=== PATIENT | male | born 1960 ===

== ENCOUNTER 2018-01-04 11:06 | Emergency (ER) | payer MEDICAID, OTHER ==
[2018-01-04 11:23] VITALS: RESP 16; O2SAT 100
[2018-01-04 11:24] VITALS: BMI 27.1
--- NOTE | 2018-01-04 11:24 | ED PDOC ---
Arrival/HPI - General Chief Complaint: Chest Pain Time Seen by Provider: 01/04/18 11:21 Historian: Patient - History of Present Illness Narrative History of Present Illness (Text): 01/04/18 11:23 pt p/w few months onset of intermittent chest pain/substernal, at times radiating to left arm; pt states pain at most is 4-5/10; occurring nearly 2-3 times daily; pt states + dizziness/lightheadedness, + left arm numbness/tingling , + weakness at times, mild sob, ? nausea, no vomiting; no fever/chills/sweats, no palpitations, no abd pain, no urinary/bowel changes, no fall/trauma/sick contact, no travel; pt states chest pain occurs when he is at rest and as well as when he is exerting; pt denied LOC pt is here for further eval pt's without other complaints PCP: NONE pt without insurance Family hx: HTN, ACS Time/Duration: > month Symptom Onset: Gradual Symptom Course: Intermittent Quality: Throbbing Severity Level: 5, Moderate Activities at Onset: Rest, Other (also occurring when he is exerting) Context: Exertion, Home Past Medical History - Provider Review Nursing Documentation Reviewed: Yes - Travel History Have you recently traveled outside [place] w/in the past 3 mons?: No - Past History Past History: No Previous - Infectious Disease Hx of Infectious Diseases: None - Tetanus Immunization Tetanus Immunization: Unknown - Past Medical History Past Medical History: No Previous - Cardiac Hx Cardiac Disorders: No - Pulmonary Hx Respiratory Disorders: No - Neurological Hx Neurological Disorder: No - HEENT Hx HEENT Disorder: No - Renal Hx Renal Disorder: No - Endocrine/Metabolic Hx Diabetes Mellitus Type 2: Yes - Hematological/Oncological Hx Blood Disorders: No - Integumentary Hx Dermatological Disorder: Yes Other/Comment: boil to right lower abd - Musculoskeletal/Rheumatological Hx Musculoskeletal Disorders: No Hx Falls: No - Gastrointestinal Hx Gastrointestinal Disorders: No - Genitourinary/Gynecological Hx Genitourinary Disorders: No - Psychiatric Hx Psychophysiologic Disorder: No Hx Anxiety: No Hx Bipolar Disorder: No Hx Depression: No Hx Emotional Abuse: No Hx Hallucinations: No Hx Panic Disorder: No Hx Post Traumatic Stress Disorder: No Hx Psychosis: No Hx Physical Abuse: No Hx Schizophrenia: No Hx Sexual Abuse: No Hx Substance Use: Yes (CANNABIS) - Past Surgical History Past Surgical History: No Previous - Surgical History Other/Comment: I&D - Anesthesia Hx Anesthesia: Yes Hx Anesthesia Reactions: No Hx Malignant Hyperthermia: No - Suicidal Assessment Feels Threatened In Home Enviroment: No Family/Social History - Physician Review Nursing Documentation Reviewed: Yes Family/Social History: No Known Family HX Smoking Status: Heavy Smoker > 10 Cigarettes Daily Hx Alcohol Use: Yes Hx Substance Use: Yes (CANNABIS) Hx Substance Use Treatment: No Allergies/Home Meds Allergies/Adverse Reactions: Allergies No Known Allergies Allergy (Verified 01/04/18 11:18) Home Medications: Home Meds Medication Instructions Recorded Confirmed No Known Home Med 01/04/18 01/04/18 Review of Systems - Review of Systems Constitutional: Normal Eyes: Normal ENT: Normal Respiratory: SOB Cardiovascular: Chest Pain Gastrointestinal: Nausea Genitourinary Male: Normal Musculoskeletal: Normal Skin: Normal Neurological: Dizziness. absent: Headache Endocrine: Normal Hemo/Lymphatic: Normal Psychiatric: Normal Physical Exam Vital Signs Reviewed: Yes Vital Signs Temp Pulse Resp BP Pulse Ox 01/04/18 13:00 47 L 16 173/86 H 100 01/04/18 11:40 53 L 167/83 H 01/04/18 11:25 97.5 F L 01/04/18 11:23 52 L 16 167/83 H 100 Temperature: Afebrile Blood Pressure: Hypertensive Pulse: Regular Respiratory Rate: Normal Appearance: Positive for: Well-Appearing, Other (mildly uncomfortable, resting in bed, alert/awake, cooperative, follows command with ease, NAD) Pain Distress: None Mental Status: Positive for: Alert and Oriented X 3 - Systems Exam Head: Present: Atraumatic, Normocephalic Pupils: Present: PERRL, Other (no nystagmus, no photophobia, scler anicteric, visual field intact b/l) Extroacular Muscles: Present: EOMI Conjunctiva: Present: Normal Ears: Present: Normal Mouth: Present: Moist Mucous Membranes, Normal Teeth, Other (uvula/tongue are midline, no exudate/lesions, no drooling/stridor) Pharnyx: Present: Normal Nose (External): Present: Atraumatic Nose (Internal): Present: Normal Inspection Neck: Present: Normal Range of Motion, Trachea Midline, Other (intact ROM, no midline tendernesss). No: MIDLINE TENDERNESS Respiratory/Chest: Present: Clear to Auscultation, Good Air Exchange, Other ( CTA b/l, no w/r/r; no accessory muscle use noted, no tachypenia) Cardiovascular: Present: Regular Rate and Rhythm, Normal S1, S2. No: Murmurs Abdomen: Present: Normal Bowel Sounds, Other (well nourished male, no focal tenderness, no hunt's sign, no mcburney's point tenderness, no masses/rebound/ guarding/rigidity). No: Tenderness Back: Present: Normal Inspection. No: Midline Tenderness Upper Extremity: Present: Normal Inspection, Normal ROM, NORMAL PULSES, Neurovascularly Intact, Capillary Refill < 2s Lower Extremity: Present: Normal Inspection, NORMAL PULSES, Normal ROM, Neurovascularly Intact, Capillary Refill < 2 s. No: Tenderness Neurological: Present: GCS=15, CN II-XII Intact, Speech Normal Skin: Present: Warm, Normal Color, Other (cap refill < 1sec, no ulcerations, no petechiae) Psychiatric: Present: Alert, Oriented x 3 Medical Decision Making ED Course and Treatment: 01/04/18 11:25 Impression: chest pain, r/o acs i have consider all the differential diagnosis regarding pt's chief medical complaints/clinical findings, including but are not limited to: chest pain, r/o acs A/P: chest pain, r/o acs - labs - iv - xray - acs eval - observe - supportive care 01/04/18 11:36 pt is currently chest pain free 01/04/18 13:05 pt is currently chest pain free 01/04/18 1305 given patients lack of healthcare access and pt's prolonged chest pain, i recommended for patient to be admitted for r/o ACS pt refused pt would like to leave AMA pt states he has too much errands to due to stay in the hospital Pt is aware that potential life-threatening illness remains and pt can lose limb /or worse case, can Pt is aware that if he changes his mind, he is encouraged to return to ED immediately for further care/management pt is encouraged outpt f/u immediately pt expressed understanding Re-evaluation Time: 11:36 Reassessment Condition: Improved - Lab Interpretations Lab Results: 01/04/18 11:45 01/04/18 11:45 Lab Results 01/04/18 12:40: Urine Color Yellow, Urine Appearance Clear, Urine pH 7.5, Ur Specific [place] 1.010, Urine Protein Negative, Urine Glucose (UA) Negative, Urine Ketones Negative, Urine Blood Negative, Urine Nitrate Negative, Urine Bilirubin Negative, Urine Urobilinogen 0.2, Ur Leukocyte Esterase Negative 01/04/18 11:45: Sodium 143, Potassium 4.5, Chloride 106, Carbon Dioxide 28, Anion Gap 13, BUN 11, Creatinine 0.8, Est GFR ( Amer) > 60, Est GFR (Non- Af Amer) > 60, Random Glucose 112 H, Calcium 9.5, Magnesium 2.1, Total Bilirubin 0.5, AST 48, ALT 56, Alkaline Phosphatase 40, Lactate Dehydrogenase 445, Total Creatine Kinase 136, Troponin I < 0.01, NT-Pro-B Natriuret Pep 91.6, Total Protein 7.3, Albumin 4.4, Globulin 2.9, Albumin/Globulin Ratio 1.5 01/04/18 11:45: WBC 5.2 D, RBC 4.03, Hgb 12.5 L, Hct 38.9 L, MCV 96.5, MCH 31.0 , MCHC 32.1, RDW 14.0, Plt Count 203, MPV 10.5, Gran % 51.4, Lymph % (Auto) 34.0 , [place] % (Auto) 11.7 H, Eos % (Auto) 2.3, Baso % (Auto) 0.6, Gran # 2.65, Lymph # (Auto) 1.8, [place] # (Auto) 0.6, Eos # (Auto) 0.1, Baso # (Auto) 0.03 I have reviewed the lab results: Yes Interpretation: All labs normal - RAD Interpretation Narrative RAD Interpretations (Text): 01/04/18 23:38 NAD Radiology Orders: 01/04/18 11:24 CHEST TWO VIEWS (PA/LAT) [RAD] Stat Water Taxi Driver: Radiologist - EKG Interpretation EKG Interpretation (Text): 01/04/18 11:29 Sinus farooq at 55 bpm, normal axis, no ectopy, no st-t changes, ? delta wave, BORDERLINE EKG; no old ekg to compare with 01/04/18 23:36 Interpreted by ED Physician: Yes Type: 12 lead EKG Comparison: No previous EKG avail. - Medication Orders Current Medication Orders: Discontinued Medications Aspirin (Aspirin) 325 mg PO STAT STA Stop: 01/04/18 11:25 Last Admin: 01/04/18 11:40 Dose: 325 mg Metoprolol Tartrate (Lopressor) 25 mg PO STAT STA Stop: 01/04/18 11:26 Last Admin: 01/04/18 11:40 Dose: 25 mg MAR Pulse and Blood Pressure Document 01/04/18 11:40 HI (Rec: 01/04/18 11:41 [place] [id number] Pulse Pulse Rate (60-90) 53 Blood Pressure Blood Pressure (100/60-150/90) 167/83 Disposition/Present on Arrival - Present on Arrival Any Indicators Present on Arrival: No History of DVT/PE: No History of Uncontrolled Diabetes: No Urinary Catheter: No History Surgical Site Infection Following: None - Disposition Have Diagnosis and Disposition been Completed?: Yes Diagnosis: Chest pain with minimal risk of acute coronary syndrome, Elevated blood pressure reading Disposition: AGAINST MEDICAL ADVICE Disposition Time: 13:02 Patient Plan: Discharge Condition: STABLE Discharge Instructions (ExitCare): High Blood Pressure in Adults, Chest Pain ( ED) Print Language: SURINAMESE Additional Instructions: you are leaving against medical advice potential life-threatening illness remains and pt can lose limb/or worse case, can you are to see your doctor as soon as possible if you change your mind, you are encouraged to return to ED immediately for further care/management Referrals: PCP,NO [Primary Care Provider] - Follow up with primary [facility] - Follow up with primary Forms: [employer] ([place])
[2018-01-04 11:27] VITALS: TEMP 97.5
[2018-01-04 11:48] LABS: BASO # 0.03 K/mm3 (0.0-2.0); BASO % 0.6 % (0.0-3.0); EOS # 0.1 (0.0-0.7); EOS % 2.3 % (1.5-5.0); GRAN # 2.65 (1.4-6.5); GRAN % 51.4 % (50.0-68.0); HEMOGLOBIN 12.5 g/dL (14.0-18.0); LYMPH # 1.8 (1.2-3.4); MEAN CELL VOLUME 96.5 fl (80.0-105.0); MEAN CORPUSCULAR HGB CONC 32.1 g/dl (31.0-37.0); MEAN PLATELET VOLUME 10.5 fl (7.0-11.0); MONO # 0.6 (0.1-0.6); MONO % 11.7 % (1.0-6.0); RBC 4.03 10^6/uL (3.5-6.1); WHITE BLOOD COUNT 5.2 10^3/ul (4.5-11.0)
[2018-01-04 12:00] LABS: ALB/GLOB RATIO 1.5 (1.1-1.8); ALBUMIN 4.4 g/dL (3.0-4.8); ALT/SGPT 56 U/L (7-56); AST/SGOT 48 U/L (17-59); BLOOD UREA NITROGEN 11 mg/dL (7-21); CALCIUM 9.5 mg/dL (8.4-10.5); GFR AFRICAN-AMERICAN > 60; GFR NON-AFRICAN AMERICAN > 60; MAGNESIUM 2.1 mg/dL (1.7-2.2)
[2018-01-04 12:14] LABS: B-TYPE NATRIURETIC PEPTIDE 91.6 pg/mL (0-450); TROPONIN I < 0.01 ng/mL
[2018-01-04 13:04] VITALS: BP 173/86; PULSE 47
[2018-01-04 13:29] LABS: PH,URINE 7.5 (4.7-8.0); URINE BILIRUBIN NEGATIVE (NEGATIVE); URINE BLOOD NEGATIVE (NEGATIVE); URINE GLUCOSE (UA) NEGATIVE (NEGATIVE); URINE LEUKOCYTE ESTERASE NEGATIVE Leu/uL (NEGATIVE); URINE NITRATE NEGATIVE (NEGATIVE); URINE PROTEIN NEGATIVE mg/dL (<30 mg/dL); URINE UROBILINOGEN 0.2 E.U./dL (<1 E.U./dL)
[2018-01-04 13:30] LABS: URINE APPEARANCE CLEAR (CLEAR); URINE COLOR YELLOW (YELLOW)
--- NOTE | 2018-01-04 14:21 | RAD ---
HISTORY: chest pain COMPARISON: No prior. TECHNIQUE: Chest PA and lateral FINDINGS: LUNGS: No active pulmonary disease. PLEURA: No significant pleural effusion identified. No pneumothorax apparent. CARDIOVASCULAR: Normal. OSSEOUS STRUCTURES: No significant abnormalities. VISUALIZED UPPER ABDOMEN: Normal. OTHER FINDINGS: None. IMPRESSION: No active disease.
--- NOTE | 2018-01-05 02:35 | CARD ---
APPROVED REPORT EKG Measurement Heart [id number] <Conclusion> Sinus bradycardia Nonspecific intraventricular conduction delay Borderline ECG
== END 2018-01-04 13:19 | disposition left against medical advice (07) ==
LOC: ED 11:06
DX: R07.9 Chest pain, unspecified (principal); I24.9 Acute ischemic heart disease, unspecified; R03.0 Elevated blood-pressure reading, without diagnosis of hypertension; E11.9 Type 2 diabetes mellitus without complications; F17.210 Nicotine dependence, cigarettes, uncomplicated

== ENCOUNTER 2019-01-24 22:20 | Observation (INO) | payer MEDICAID, OTHER ==
[2019-01-24 22:22] VITALS: BMI 27.1
--- NOTE | 2019-01-24 23:01 | ED PDOC ---
Arrival/HPI - General Chief Complaint: Chest Pain Time Seen by Provider: 01/24/19 22:25 Historian: Patient - History of Present Illness Narrative History of Present Illness (Text): 01/24/19 22:50 Moris Monk is a 58 year old male smoker, whose past medical history includes diabetes, who presents to the emergency department complaining of chest pain. Patient states he has been experiencing intermittent chest pain with associated tingling sensation in bilateral hands and feet. Patient notes he has not been taking his diabetes medication regularly. Patient denies any fever, chills, shortness of breath, abdominal pain, nausea, vomiting, diarrhea, urinary symptoms, back pain, neck pain, headache, dizziness, or any other complaints. Symptom Onset: Gradual Symptom Course: Unchanged Activities at Onset: Light Context: Home Past Medical History - Provider Review Nursing Documentation Reviewed: Yes - Past History Past History: No Previous - Infectious Disease Hx of Infectious Diseases: None - Tetanus Immunization Tetanus Immunization: Unknown - Past Medical History Past Medical History: No Previous - Cardiac Hx Cardiac Disorders: No Hx Hypertension: Yes - Pulmonary Hx Respiratory Disorders: No - Neurological Hx Neurological Disorder: No - HEENT Hx HEENT Disorder: No - Renal Hx Renal Disorder: No - Endocrine/Metabolic Hx Diabetes Mellitus Type 2: Yes - Hematological/Oncological Hx Blood Disorders: No - Integumentary Hx Dermatological Disorder: Yes Other/Comment: boil to right lower abd - Musculoskeletal/Rheumatological Hx Musculoskeletal Disorders: No Hx Falls: No - Gastrointestinal Hx Gastrointestinal Disorders: No - Genitourinary/Gynecological Hx Genitourinary Disorders: No - Psychiatric Hx Psychophysiologic Disorder: No Hx Anxiety: No Hx Bipolar Disorder: No Hx Depression: No Hx Emotional Abuse: No Hx Hallucinations: No Hx Panic Disorder: No Hx Post Traumatic Stress Disorder: No Hx Psychosis: No Hx Physical Abuse: No Hx Schizophrenia: No Hx Sexual Abuse: No Hx Substance Use: Yes (CANNABIS) - Past Surgical History Past Surgical History: No Previous - Surgical History Other/Comment: I&D - Anesthesia Hx Anesthesia: Yes Hx Anesthesia Reactions: No Hx Malignant Hyperthermia: No - Suicidal Assessment Feels Threatened In Home Enviroment: No Family/Social History - Physician Review Nursing Documentation Reviewed: Yes Family/Social History: Unknown Family HX Smoking Status: Heavy Smoker > 10 Cigarettes Daily Hx Alcohol Use: Yes (beer) Hx Substance Use: Yes (CANNABIS) Hx Substance Use Treatment: No Allergies/Home Meds Allergies/Adverse Reactions: Allergies No Known Allergies Allergy (Verified 01/04/18 11:18) Home Medications: Home Meds Medication Instructions Recorded Confirmed No Known Home Med 01/04/18 01/04/18 Review of Systems - Physician Review All systems were reviewed & negative as marked: Yes - Review of Systems Constitutional: Normal. absent: Fevers Eyes: Normal ENT: Normal Respiratory: Normal. absent: SOB, Cough Cardiovascular: Chest Pain Gastrointestinal: Normal. absent: Abdominal Pain, Diarrhea, Nausea, Vomiting Genitourinary Male: Normal. absent: Dysuria, Frequency, Hematuria, Urinary Output Changes Musculoskeletal: Other (+tingling sensation in hands and feet). absent: Back Pain, Neck Pain Skin: Normal. absent: Rash Neurological: Normal. absent: Headache, Dizziness Endocrine: Normal Hemo/Lymphatic: Normal Psychiatric: Normal Physical Exam Vital Signs Reviewed: Yes Vital Signs Temp Pulse Resp BP Pulse Ox 01/24/19 22:31 98.3 F 75 18 163/109 H 99 Temperature: Afebrile Blood Pressure: Normal Pulse: Regular Respiratory Rate: Normal Appearance: Positive for: Well-Appearing, Non-Toxic, Comfortable Pain Distress: None Mental Status: Positive for: Alert and Oriented X 3 - Systems Exam Head: Present: Atraumatic, Normocephalic Pupils: Present: PERRL Extroacular Muscles: Present: EOMI Conjunctiva: Present: Normal Mouth: Present: Moist Mucous Membranes Neck: Present: Normal Range of Motion Respiratory/Chest: Present: Clear to Auscultation, Good Air Exchange. No: Respiratory Distress, Accessory Muscle Use Cardiovascular: Present: Regular Rate and Rhythm, Normal S1, S2. No: Murmurs Abdomen: No: Tenderness, Distention, Peritoneal Signs Back: Present: Normal Inspection Upper Extremity: Present: Normal Inspection. No: Cyanosis, Edema Lower Extremity: Present: Normal Inspection. No: Edema Neurological: Present: GCS=15, CN II-XII Intact, Speech Normal Skin: Present: Warm, Dry, Normal Color. No: Rashes Psychiatric: Present: Alert, Oriented x 3, Normal Insight, Normal Concentration Medical Decision Making ED Course and Treatment: 01/24/19 22:50 Impression: 58 year old male complaining of chest pain and tingling sensation in hands and feet. Plan: -- EKG -- CXR -- Labs, cardiac enzymes, alcohol level -- UA -- Reassess and disposition Prior Visits: Notes and results from previous visits were reviewed. Progress Notes: Reviewed EKG, NSR at 72 bpm. Non-specific ST/T wave changes. 01/24/19 23:45 CXR reviewed, shows no acute processes. 01/25/19 01:00 Case discussed with medical tech concrete products machine operator, who is aware and agrees with plan. Case discussed with Dr. Hightower, who is aware and agrees with plan. Accepts pt in to hospitalist service. Pt will go to Telemetry observation for chest pain. - Lab Interpretations I have reviewed the lab results: Yes - RAD Interpretation Radiology Orders: 01/24/19 22:52 CHEST PORTABLE [RAD] Stat Ladle Liner: ED Physician - EKG Interpretation Interpreted by ED Physician: Yes Type: 12 lead EKG - Scribe Statement The provider has reviewed the documentation as recorded by the Scribe Marlene Ascencio Provider Scribe Attestation: All medical record entries made by the Scribe were at my direction and personally dictated by me. I have reviewed the chart and agree that the record accurately reflects my personal performance of the history, physical exam, [facility] decision making, and the department course for this patient. I have also personally directed, reviewed, and agree with the discharge instructions and disposition. Disposition/Present on Arrival - Present on Arrival Any Indicators Present on Arrival: No History of DVT/PE: No History of Uncontrolled Diabetes: No Urinary Catheter: No History of Decub. Ulcer: No History Surgical Site Infection Following: None - Disposition Have Diagnosis and Disposition been Completed?: Yes Diagnosis: Chest pain Disposition: HOSPITALIZED Disposition Time: 01:00 Condition: FAIR
[2019-01-24 23:04] LABS: BASO # 0.03 K/mm3 (0.0-2.0); BASO % 0.4 % (0.0-3.0); EOS # 0.1 (0.0-0.7); EOS % 0.9 % (1.5-5.0); HEMOGLOBIN 12.9 g/dL (14.0-18.0); LYMPH # 2.3 (1.2-3.4); LYMPH % 29.2 % (22.0-35.0); MEAN CELL VOLUME 95.4 fl (80.0-105.0); MEAN CORPUSCULAR HEMOGLOBIN 31.1 pg (25.0-35.0); MEAN CORPUSCULAR HGB CONC 32.6 g/dl (31.0-37.0); MEAN PLATELET VOLUME 10.6 fl (7.0-11.0); MONO # 1.3 (0.1-0.6); MONO % 15.8 % (1.0-6.0); RBC 4.15 10^6/uL (3.5-6.1); RED CELL DISTRIBUTION WIDTH 13.7 % (11.5-14.5); WHITE BLOOD COUNT 7.9 10^3/uL (4.5-11.0)
[2019-01-24 23:14] LABS: ALB/GLOB RATIO 1.5 (1.1-1.8); ALBUMIN 4.9 g/dL (3.0-4.8); ALT/SGPT 64 U/L (7-56); AST/SGOT 69 U/L (17-59); BLOOD UREA NITROGEN 16 mg/dL (7-21); CALCIUM 9.9 mg/dL (8.4-10.5); GFR NON-AFRICAN AMERICAN > 60
[2019-01-24 23:25] LABS: TROPONIN I < 0.01 ng/mL
[2019-01-24 23:53] LABS: CK-MB 3.3 ng/mL (0.0-3.6)
--- NOTE | 2019-01-25 00:06 | CP.PCM.HP ---
<Marquise Stewart - Last Filed: 01/25/19 01:53> History of Present Illness - History of Present Illness History of Present Illness: Marquise Stewart DO, PGY-1 Hospitalist Admission History and Physical for Dr. Hightower CC: chest pain HPI: Patient is a 58 year old male with PMH of poorly controlled DM2 presents to ED with a complaint of mid-sternal chest pain that does not radiate which has been going on for the past 2 months. 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 He also complains of intermittent dizziness which he states has been progressing over the past 2 months. He states that he chose to come in today because the chest pain and dizziness were getting worse. He notes that he has also had numbness/tingling sensation in his feet b/l which has been worsening for the past few months. He does not follow with a physician regularly for his DM2 and takes his sister's diabetes medicine, which he does not recall the name of. He reports one episode of chills recently in which he was sweating a lot but otherwise denies fever, palpitations, MARTELL, changes in vision, abd pain/nausea/vomiting, other episodes of diaphoresis, or new urinary complaints. 12 point ROS was otherwise negative except as specified above. PMD: none Past Medical History: poorly controlled DM2 Past Surgical History: none Allergies: NKA Home medications: unknown oral diabetes medicine Family History: reviewed, non-contributory Social History: admits to light cigarette smoking 1-3 cigarettes per day, admits to recent heavier alcohol use 3-4 beers daily because he has been stressed from unemployment, admits to occasionally smoking marijuana, denies other illicit drug use Present on Admission - Present on Admission Any Indicators Present on Admission: Yes History of DVT/PE: No History of Uncontrolled Diabetes: Yes Urinary Catheter: No Decubitus Ulcer Present: No Review of Systems - Constitutional Constitutional: absent: Chills, Fever - EENT Eyes: absent: Change in Vision - Cardiovascular Cardiovascular: Chest Pain. absent: Dyspnea, Dyspnea on Exertion, Pain Radiating to Arm/Neck/Jaw, Palpitations - Respiratory Respiratory: absent: Cough, Dyspnea - Gastrointestinal Gastrointestinal: absent: Abdominal Pain, Nausea, Vomiting - Genitourinary Genitourinary: absent: Change in Urinary Stream, Difficulty Urinating - Musculoskeletal Musculoskeletal: Numbness, Tingling Past Patient History - Infectious Disease Hx of Infectious Diseases: None - Tetanus Immunizations Tetanus Immunization: Unknown - Past Social History Smoking Status: Heavy Smoker > 10 Cigarettes Daily - CARDIAC Hx Cardiac Disorders: No Hx Hypertension: Yes - PULMONARY Hx Respiratory Disorders: No - NEUROLOGICAL Hx Neurological Disorder: No - HEENT Hx HEENT Problems: No - RENAL Hx Chronic Kidney Disease: No - ENDOCRINE/METABOLIC Hx Diabetes Mellitus Type 2: Yes - HEMATOLOGICAL/ONCOLOGICAL Hx Blood Disorders: No - INTEGUMENTARY Hx Dermatological Problems: Yes Other/Comment: boil to right lower abd - MUSCULOSKELETAL/RHEUMATOLOGICAL Hx Musculoskeletal Disorders: No Hx Falls: No - GASTROINTESTINAL Hx Gastrointestinal Disorders: No - GENITOURINARY/GYNECOLOGICAL Hx Genitourinary Disorders: No - PSYCHIATRIC Hx Psychophysiologic Disorder: No Hx Anxiety: No Hx Bipolar Disorder: No Hx Depression: No Hx Emotional Abuse: No Hx Hallucinations: No Hx Panic Symptoms: No Hx Post Traumatic Stress Disorder: No Hx Psychosis: No Hx Physical Abuse: No Hx Schizophrenia: No Hx Sexual Abuse: No Hx Substance Use: Yes (CANNABIS) - SURGICAL HISTORY Other/Comment: I&D - ANESTHESIA Hx Anesthesia: Yes Hx Anesthesia Reactions: No Hx Malignant Hyperthermia: No Meds Allergies/Adverse Reactions: Allergies Allergy/AdvReac Type Severity Reaction Status Date / Time No Known Allergies Allergy Verified 01/04/18 11:18 Physical Exam - Constitutional Appears: Non-toxic, No Acute Distress - Head Exam Head Exam: ATRAUMATIC, NORMOCEPHALIC - Eye Exam Eye Exam: EOMI, PERRL - ENT Exam ENT Exam: Mucous Membranes Moist - Neck Exam Neck exam: Positive for: Full Rom, Normal Inspection - Respiratory Exam Respiratory Exam: Clear to Auscultation Bilateral, NORMAL BREATHING PATTERN. absent: Rales, Rhonchi, Wheezes - Cardiovascular Exam Cardiovascular Exam: REGULAR RHYTHM, RRR, +S1, +S2. absent: Diastolic murmur, Gallop, Rubs, Systolic Murmur - GI/Abdominal Exam GI & Abdominal Exam: Normal Bowel Sounds, Soft. absent: Guarding, Rebound, Tenderness - Extremities Exam Extremities exam: Positive for: full ROM, normal inspection. Negative for: pedal edema - Back Exam Back exam: NORMAL INSPECTION - Neurological Exam Neurological exam: Alert, Oriented x3 - Psychiatric Exam Psychiatric exam: Normal Affect, Normal Mood - Skin Skin Exam: Dry, Intact, Warm Results - Vital Signs Recent Vital Signs: Last Vital Signs Temp 98.3 F 01/24/19 22:31 Pulse 75 01/24/19 22:31 Resp 18 01/24/19 22:31 BP 163/109 H 01/24/19 22:31 Pulse Ox 99 01/24/19 22:31 - Labs Result Diagrams: 01/24/19 22:40 01/24/19 22:40 Labs: Laboratory Results - last 24 hr 01/24/19 01/24/19 01/24/19 22:40 22:40 22:40 WBC 7.9 RBC 4.15 Hgb 12.9 L Hct 39.6 L MCV 95.4 MCH 31.1 MCHC 32.6 RDW 13.7 Plt Count 226 MPV 10.6 Neut % (Auto) 53.7 Lymph % (Auto) 29.2 Clay % (Auto) 15.8 H Eos % (Auto) 0.9 L Baso % (Auto) 0.4 Lymph # (Auto) 2.3 Clay # (Auto) 1.3 H Eos # (Auto) 0.1 Baso # (Auto) 0.03 Absolute Neuts (auto) 4.24 Sodium 141 Potassium 4.5 Chloride 103 Carbon Dioxide 25 Anion Gap 17 BUN 16 Creatinine 0.7 L Est GFR ( Amer) > 60 Est GFR (Non-Af Amer) > 60 Random Glucose 81 Calcium 9.9 Magnesium 2.3 H Total Bilirubin 0.5 AST 69 H D ALT 64 H Alkaline Phosphatase 56 Lactate Dehydrogenase 568 Total Creatine Kinase 322 H CK-MB (CK-2) 3.3 CK-MB (CK-2) % Cancelled Troponin I < 0.01 Total Protein 8.2 Albumin 4.9 H Globulin 3.4 Albumin/Globulin Ratio 1.5 Alcohol, Quantitative 36 H Assessment & Plan - Assessment and Plan (Free Text) Assessment: 58 yo M with PMH of poorly controlled DM2 presents with worsening CP and dizziness admitted for ACS r/o. Plan: Chest pain Trend trop x 2, initial trop in ED negative Repeat EKG in AM F/u lipid panel, TSH, A1c in AM Cardiology consult placed, all recs appreciated Dizziness May be 2/2 cardiac etiology Orthostatic VS F/u additional cardiology recs Poorly Controlled DM2 ISS while admitted Fingerstick glucose ACHS Peripheral Numbness/Tingling Likely 2/2 diabetic neuropathy from poorly controlled DM2 F/u A1c result in AM Will need outpatient f/u DVT/GI PPX: SCD/pepcid Full Code Heart healthy, diabetic diet Monitor on telemetry Patient seen, examined with, and plan discussed with my attending Dr. Campbell Stewart, ViriO. IM Resident PGY-1 <Cailin Hightower - Last Filed: 01/25/19 02:17> Results - Vital Signs Recent Vital Signs: Last Vital Signs Temp 98.3 F 01/24/19 22:31 Pulse 60 01/25/19 02:02 Resp 16 01/25/19 02:02 BP 153/87 H 01/25/19 02:02 Pulse Ox 96 01/25/19 02:02 - Labs Result Diagrams: 01/24/19 22:40 01/24/19 22:40 Labs: Laboratory Results - last 24 hr 01/24/19 01/24/19 01/24/19 22:40 22:40 22:40 WBC 7.9 RBC 4.15 Hgb 12.9 L Hct 39.6 L MCV 95.4 MCH 31.1 MCHC 32.6 RDW 13.7 Plt Count 226 MPV 10.6 Neut % (Auto) 53.7 Lymph % (Auto) 29.2 Clay % (Auto) 15.8 H Eos % (Auto) 0.9 L Baso % (Auto) 0.4 Lymph # (Auto) 2.3 Clay # (Auto) 1.3 H Eos # (Auto) 0.1 Baso # (Auto) 0.03 Absolute Neuts (auto) 4.24 Sodium 141 Potassium 4.5 Chloride 103 Carbon Dioxide 25 Anion Gap 17 BUN 16 Creatinine 0.7 L Est GFR ( Amer) > 60 Est GFR (Non-Af Amer) > 60 Random Glucose 81 Calcium 9.9 Magnesium 2.3 H Total Bilirubin 0.5 AST 69 H D ALT 64 H Alkaline Phosphatase 56 Lactate Dehydrogenase 568 Total Creatine Kinase 322 H CK-MB (CK-2) 3.3 CK-MB (CK-2) % Cancelled Troponin I < 0.01 Total Protein 8.2 Albumin 4.9 H Globulin 3.4 Albumin/Globulin Ratio 1.5 Alcohol, Quantitative 36 H Attending/Attestation - Attestation I have personally seen and examined this patient.: Yes I have fully participated in the care of the patient.: Yes I have reviewed all pertinent clinical information: Yes Notes (Text): 01/25/19 02:15 Pt seen with the resident by the bedside. Case discussed in detail. Agree with documentation,assessment and plan of treatment.
[2019-01-25] MEDS ORDERED: Dextrose 50% SYRINGE Inj (50 ml) IV PRN (00:30)
[2019-01-25 02:43] VITALS: RESP 18
[2019-01-25 04:29] LABS: PH,URINE 5.5 (4.7-8.0); URINE BILIRUBIN NEGATIVE (NEGATIVE); URINE BLOOD TRACE-INTACT (NEGATIVE); URINE GLUCOSE (UA) NEGATIVE (NEGATIVE); URINE LEUKOCYTE ESTERASE NEGATIVE Leu/uL (NEGATIVE); URINE PROTEIN NEGATIVE mg/dL (<30 mg/dL); URINE UROBILINOGEN 0.2 E.U./dL (<1 E.U./dL)
[2019-01-25 04:30] LABS: URINE APPEARANCE CLEAR (CLEAR); URINE COLOR YELLOW (YELLOW)
[2019-01-25 04:41] LABS: URINE EPITHELIAL CELLS 0 - 2 /hpf (0-5); URINE RBC 0 - 2 /hpf (0-2); URINE WBC 0 - 2 /hpf (0-6)
[2019-01-25 06:33] LABS: BASO # 0.02 K/mm3 (0.0-2.0); BASO % 0.3 % (0.0-3.0); EOS # 0.1 (0.0-0.7); HEMOGLOBIN 12.9 g/dL (14.0-18.0); LYMPH # 1.9 (1.2-3.4); LYMPH % 31.6 % (22.0-35.0); MEAN CELL VOLUME 95.7 fl (80.0-105.0); MEAN CORPUSCULAR HEMOGLOBIN 30.6 pg (25.0-35.0); MEAN CORPUSCULAR HGB CONC 31.9 g/dl (31.0-37.0); MEAN PLATELET VOLUME 10.9 fl (7.0-11.0); MONO % 17.1 % (1.0-6.0); RBC 4.22 10^6/uL (3.5-6.1); RED CELL DISTRIBUTION WIDTH 13.8 % (11.5-14.5); WHITE BLOOD COUNT 5.9 10^3/uL (4.5-11.0)
[2019-01-25 07:01] LABS: ALB/GLOB RATIO 1.4 (1.1-1.8); ALBUMIN 4.5 g/dL (3.0-4.8); ALT/SGPT 67 U/L (7-56); AST/SGOT 69 U/L (17-59); BLOOD UREA NITROGEN 14 mg/dL (7-21); CALCIUM 9.4 mg/dL (8.4-10.5); GFR NON-AFRICAN AMERICAN > 60; HDL CHOLESTEROL 79 mg/dL (29-60)
[2019-01-25 07:04] LABS: TROPONIN I 0.01 ng/mL
[2019-01-25 07:12] LABS: LDL CHOLESTEROL 112 mg/dL (0-129)
[2019-01-25] MEDS: Insulin Reg-MEDIUM-Coverage SC SCH ×3 (07:58→17:17)
[2019-01-25] MEDS ORDERED: Sodium Chloride 0.45% 1,000 ML IV SCH (08:45)
--- NOTE | 2019-01-25 09:27 | CARD ---
APPROVED REPORT Date of service: 01/25/2019 EKG Measurement Heart [id number] <Conclusion> Sinus bradycardia Nonspecific intraventricular conduction delay Borderline ECG
--- NOTE | 2019-01-25 09:29 | CARD ---
APPROVED REPORT Date of service: 01/24/2019 EKG Measurement Heart [id number] <Conclusion> Normal sinus rhythm Nonspecific intraventricular conduction delay Borderline ECG
[2019-01-25 09:48] VITALS: O2SAT 98
[2019-01-25] MEDS ORDERED: Multivitamin With Minerals Tab PO SCH (10:00)
--- NOTE | 2019-01-25 10:58 | RAD ---
Date of service: 01/24/2019 HISTORY: Chest pain. COMPARISON: 2018. FINDINGS: LUNGS: No active pulmonary disease. PLEURA: No significant pleural effusion identified, no pneumothorax apparent. CARDIOVASCULAR: No atherosclerotic calcification present Normal. OSSEOUS STRUCTURES: No significant abnormalities. VISUALIZED UPPER ABDOMEN: Normal. OTHER FINDINGS: None. IMPRESSION: No active disease. No significant interval change compared to the prior examination(s).
[2019-01-25 11:47] LABS: TROPONIN I < 0.01 ng/mL
[2019-01-25 11:53] LABS: CK-MB 2.4 ng/mL (0.0-3.6)
[2019-01-25 12:10] VITALS: BP 135/86; PULSE 56; TEMP 97.3
--- NOTE | 2019-01-25 12:17 | CON ---
DATE OF CONSULTATION: 01/25/2019 REQUESTING PHYSICIAN: Dr. Luo. REASON FOR CONSULTATION: Chest pain. HISTORY: This is a 58-year-old man, presented with a history of diabetes and tobacco abuse, who presents to the emergency room complaining of chest pain as well as intermittent dizziness and diaphoresis. He denied any fever. He cannot identify any precipitating or relieving factors. He has not had good followup with regard to his health care lately. He states he has been drinking excessively as well. He is a smoker of several cigarettes a day. He does have a history of diabetes and apparently has been taking his sister's medication intermittently for this. He has not had regular medical followup. He is not hypertensive. There is no family history of premature heart disease. PAST MEDICAL HISTORY: As mentioned. SOCIAL HISTORY: As mentioned. He also uses marijuana intermittently. He drinks beer heavily. He works in construction. FAMILY HISTORY: Father had diabetes and required lower extremity amputations. Mother is hypertensive. One sister is diabetic. There is no family history of premature heart disease. MEDICATIONS: No regular medications. ALLERGIES: NONE. REVIEW OF SYSTEMS: Ten-point review of systems is otherwise unremarkable. PHYSICAL EXAMINATION: GENERAL: He is an anxious-appearing middle-aged man. VITAL SIGNS: His blood pressure is 160/84 with a pulse of 56, respirations are 16. He is afebrile. HEENT: Normocephalic, atraumatic. NECK: Supple. No JVD noted. CHEST: A few scattered rhonchi heard. HEART: PMI displaced laterally. No pathological murmurs or gallops noted. ABDOMEN: Soft and nontender with normoactive bowel sounds. EXTREMITIES: No clubbing, cyanosis, or edema. SKIN: Warm and dry. PSYCHIATRIC: Normal mood and affect. NEUROLOGIC: Alert and oriented x3. No gross motor or sensory deficits appreciable. DIAGNOSTIC DATA: Potassium 5.9, hemoglobin and hematocrit are 12.9 and 40.4, and platelet count 217,000. Potassium 3.8. BUN and creatinine are 14 and 0.7. Two sets of cardiac enzymes are negative. AST and ALT are 69 and 67. Cholesterol 221 with an HDL of 79, LDL of 112. TSH 1.64. Electrocardiogram reveals sinus tachycardia with nonspecific intraventricular conduction delay. Chest x-ray reveals a normal cardiac silhouette with clear lung calderón. IMPRESSION: 1. Chest pain, etiology unclear. No clear evidence of acute cardiac ischemia. 2. Poor medical compliance. 3. Apparent diabetes with poor management and followup 4. Apparent hypertension. 5. Tobacco and alcohol abuse. RECOMMENDATIONS: If his third set of cardiac enzymes is negative, a discharge home at this time will be reasonable. He does need a medical followup and appears to need antihypertensive therapy as well. Further evaluation with an outpatient stress test and echocardiogram would be reasonable. Smoking abstinence and discontinuation of all alcohol abuse was advised as well. We will be happy to see in the future as needed Isaac Ng MD
--- NOTE | 2019-01-25 13:08 | CP.PCM.DIS ---
<Elin Rivers - Last Filed: 01/25/19 19:43> Provider - Provider Date of Admission: 01/24/19 23:59 Attending physician: Walt Luo MD Consults: 01/25/19 00:27 Cardiology Consult Routine Comment: Consulting Provider: Isaac Ng Consulting Physician: Isaac Ng Reason for Consult: CP, hx DM2, ACS r/o 01/25/19 02:39 Transition In Care/Readmission Reduction Routine Comment: Physician Instructions: Reason For Exam: met criteria 01/25/19 07:36 Diabetic Education Referral Routine Comment: Non compliant with meds Physician Instructions: Reason For Exam: Need more info about DM Time Spent in preparation of Discharge (in minutes): 45 Diagnosis - Discharge Diagnosis (1) Chest pain Status: Acute Hospital Course - Lab Results Lab Results: Most Recent Lab Values WBC 5.9 10^3/uL (4.5-11.0) D 01/25/19 06:10 RBC 4.22 10^6/uL (3.5-6.1) 01/25/19 06:10 Hgb 12.9 g/dL (14.0-18.0) L 01/25/19 06:10 Hct 40.4 % (42.0-52.0) L 01/25/19 06:10 MCV 95.7 fl (80.0-105.0) 01/25/19 06:10 MCH 30.6 pg (25.0-35.0) 01/25/19 06:10 MCHC 31.9 g/dl (31.0-37.0) 01/25/19 06:10 RDW 13.8 % (11.5-14.5) 01/25/19 06:10 Plt Count 217 10^3/uL (120.0-450.0) 01/25/19 06:10 MPV 10.9 fl (7.0-11.0) 01/25/19 06:10 Neut % (Auto) 49.0 % (50.0-68.0) L 01/25/19 06:10 Lymph % (Auto) 31.6 % (22.0-35.0) 01/25/19 06:10 [place] % (Auto) 17.1 % (1.0-6.0) H 01/25/19 06:10 Eos % (Auto) 2.0 % (1.5-5.0) 01/25/19 06:10 Baso % (Auto) 0.3 % (0.0-3.0) 01/25/19 06:10 Lymph # (Auto) 1.9 (1.2-3.4) 01/25/19 06:10 [place] # (Auto) 1.0 (0.1-0.6) H 01/25/19 06:10 Eos # (Auto) 0.1 (0.0-0.7) 01/25/19 06:10 Baso # (Auto) 0.02 K/mm3 (0.0-2.0) 01/25/19 06:10 Absolute Neuts (auto) 2.87 (1.4-6.5) 01/25/19 06:10 Sodium 139 mmol/L (132-148) 01/25/19 06:10 Potassium 3.8 mmol/L (3.6-5.0) 01/25/19 06:10 Chloride 104 mmol/L (98-107) 01/25/19 06:10 Carbon Dioxide 27 mmol/L (21-33) 01/25/19 06:10 Anion Gap 12 (10-20) 01/25/19 06:10 BUN 14 mg/dL (7-21) 01/25/19 06:10 Creatinine 0.7 mg/dl (0.8-1.5) L 01/25/19 06:10 Est GFR ( Amer) > 60 01/25/19 06:10 Est GFR (Non-Af Amer) > 60 01/25/19 06:10 POC Glucose (mg/dL) 83 mg/dL (65-110) 01/25/19 12:03 Random Glucose 83 mg/dL (70-110) 01/25/19 06:10 Hemoglobin A1c 5.9 % (4.2-6.5) 01/25/19 06:10 Calcium 9.4 mg/dL (8.4-10.5) 01/25/19 06:10 Phosphorus 3.9 mg/dL (2.5-4.5) 01/25/19 06:10 Magnesium 2.1 mg/dL (1.7-2.2) 01/25/19 06:10 Total Bilirubin 0.7 mg/dL (0.2-1.3) 01/25/19 06:10 AST 69 U/L (17-59) H 01/25/19 06:10 ALT 67 U/L (7-56) H 01/25/19 06:10 Alkaline Phosphatase 57 U/L (38-126) 01/25/19 06:10 Lactate Dehydrogenase 568 U/L (333-699) 01/24/19 22:40 Total Creatine Kinase 278 U/L (35-230) H 01/25/19 11:10 CK-MB (CK-2) 2.4 ng/mL (0.0-3.6) 01/25/19 11:10 CK-MB (CK-2) % Cancelled 01/24/19 22:40 Troponin I < 0.01 ng/mL 01/25/19 11:10 Total Protein 7.8 g/dL (5.8-8.3) 01/25/19 06:10 Albumin 4.5 g/dL (3.0-4.8) 01/25/19 06:10 Globulin 3.2 gm/dL 01/25/19 06:10 Albumin/Globulin Ratio 1.4 (1.1-1.8) 01/25/19 06:10 Triglycerides 65 mg/dL (35-160) 01/25/19 06:10 Cholesterol 221 mg/dL (130-200) H 01/25/19 06:10 LDL Cholesterol Direct 112 mg/dL (0-129) 01/25/19 06:10 HDL Cholesterol 79 mg/dL (29-60) H 01/25/19 06:10 TSH 3rd Generation 1.64 mIU/mL (0.46-4.68) 01/25/19 06:10 Urine Color Yellow (YELLOW) 01/25/19 03:24 Urine Appearance Clear (CLEAR) 01/25/19 03:24 Urine pH 5.5 (4.7-8.0) 01/25/19 03:24 Ur Specific [place] 1.020 (1.005-1.035) 01/25/19 03:24 Urine Protein Negative mg/dL (<30 mg/dL) 01/25/19 03:24 Urine Glucose (UA) Negative mg/dL (NEGATIVE) 01/25/19 03:24 Urine Ketones Negative mg/dL (NEGATIVE) 01/25/19 03:24 Urine Blood Trace-intact (NEGATIVE) H 01/25/19 03:24 Urine Nitrate Negative (NEGATIVE) 01/25/19 03:24 Urine Bilirubin Negative (NEGATIVE) 01/25/19 03:24 Urine Urobilinogen 0.2 E.U./dL (<1 E.U./dL) 01/25/19 03:24 Ur Leukocyte Esterase Negative Maria Fernanda/uL (NEGATIVE) 01/25/19 03:24 Urine RBC 0 - 2 /hpf (0-2) 01/25/19 03:24 Urine WBC 0 - 2 /hpf (0-6) 01/25/19 03:24 Ur Epithelial Cells 0 - 2 /hpf (0-5) 01/25/19 03:24 Urine Bacteria None /hpf (NONE) 01/25/19 03:24 Alcohol, Quantitative 36 mg/dL (0-10) H 01/24/19 22:40 - Hospital Course Hospital Course: Upon Admission: Patient is a 58 year old male with PMH of questionable DM2 presents to ED with a complaint of mid-sternal chest pain that does not radiate which has been going on for the past 2 months. 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 He also complains of intermittent dizziness which he states has been progressing over the past 2 months. He states that he chose to come in today because the chest pain and dizziness were getting worse. He notes that he has also had numbness/tingling sensation in his feet b/l which has been worsening for the past few months. He does not follow with a physician regularly for his DM2 and takes his sister's diabetes medicine, which he does not recall the name of. He reports one episode of chills recently in which he was sweating a lot but otherwise denies fever, palpitations, MARTELL, changes in vision, abd pain/nausea/vomiting, other episodes of diaphoresis, or new urinary complaints. Hospital Course: Pt was being worked up for CP r/o ACS and was also being worked up for his b/l LE peripheral numbness and tingling. Pt states that he was diagnosed with DM at this hospital about 2-3 years ago. His prior A1c showed a level of 6.0 and repeat A1c today was 5.9. Pt states that he does not take any medication for DM, but does take his sisters medication from time to time. Cardiology was consulted for the chest pain. Trops were trended x3 and they were all found to be negative. Pt states that his chest pain has improved and also states that his LE pain is present but also is improving. Cardiology cleared the pt and stated that the pt should follow up for exercise stress test. Pt also is noted to have HTN which has not been treated as pt has not seen a doctor in many years. Given pts questionable DM status an ACEI was started. Pt then had an appointment made with the clinic on the ground floor of the hospital and is scheduled for Wednesday at 3:30pm. Pt also had orthostatic vital signs taken to r/o orthostatic hypotension and was negative. Physical therapy also saw the pt due to his dizziness and stated that the pt is safe for discharge home. Pt had lipid profile taken and had an elevated ASCVD risk score of 8.5% in 10 years. The pt was informed that he would need to be started on a cholesterol lowering agent, but at this time due to his LFT elevation this would be delayed until he can fo llow up with his PMD who can re-evaluate whether or not he would be a candidate for starting statins at a later time. Pt was started on Aspirin, lisinopril, thiamine, multi-vitamins and folate due to his recent hx of etoh abuse for the past 6 months. Pts CIWA was noted to be between 0-1 during his stay. Pt was informed of all the new medication additions, and emphasized the importance of follow up with cardiology and his primary care doctor. Pt expressed understanding and agreement of plan for discharge and appropriate follow up. Pt had all questions about his new medication and follow up answered prior to d/c. Discharge Exam - Head Exam Head Exam: ATRAUMATIC, NORMOCEPHALIC - Eye Exam Eye Exam: EOMI, Normal appearance, PERRL - Respiratory Exam Respiratory Exam: Clear to PA & Lateral, NORMAL BREATHING PATTERN, UNREMARKABLE. absent: Accessory Muscle Use, Chest Wall Tenderness, Rales, Rhonchi, Wheezes, Respiratory Distress, Stridor - Cardiovascular Exam Cardiovascular Exam: RRR, +S1, +S2. absent: Gallop, Rubs - GI/Abdominal Exam GI & Abdominal Exam: Normal Bowel Sounds, Soft, Unremarkable. absent: Distended, Firm, Guarding, Rigid, Tenderness - Extremities Exam Extremities exam: normal capillary refill, normal inspection, pedal pulses present - Back Exam Back exam: NORMAL INSPECTION. absent: CVA tenderness (L), CVA tenderness (R) - Neurological Exam Neurological exam: Alert, Oriented x3 - Psychiatric Exam Psychiatric exam: Normal Affect, Normal Mood - Skin Skin Exam: Dry, Normal Color, Warm Discharge Plan - Discharge Medications Prescriptions: Aspirin [Aspirin Chewable] 81 mg PO DAILY 30 Days #30 chew Folic Acid 1 mg PO DAILY 30 Days #30 tab Lisinopril [Zestril] 10 mg PO DAILY 30 Days #30 tab Multimineral/Multivitamin [Therapeutic-M Tab] 1 tab PO DAILY 30 Days #30 tab Thiamine [Vitamin B1 Tab] 50 mg PO DAILY 30 Days #30 tab - Follow Up Plan Condition: FAIR Disposition: HOME/ ROUTINE Instructions: Cardiac Stress Test, Myocardial Perfusion Imaging, Heart Healthy Diet, Dangers of Secondhand Smoke, Diabetes Type 1, Adult (DC), Diabetes Diet , Chest Pain (DC), Low Salt Diet, Quitting Smoking Additional Instructions: - Please follow up with your primary care doctor, Dr. Adams at [facility] in [facility] on @ 3:30 PM. - Please note that we have started you on new medications: - Aspirin 81mg by mouth daily to help protect the heart - Folic acid, 1mg by mouth daily, Multivitamin and thiamine 50mg tab once daily by mouth to help replace vitamins you may be losing due to alcohol consumption - Lisinopril 10mg by mouth once a day for your high blood pressure - Please discuss starting a cholesterol lowering agent with your primary care doctor. You were not started on it due to your sub-optimal liver function likely due to your alcohol use. - Please note that your HgA1c is 5.9 which indicates that you are not a diabetic. Please do not take any diabetic medication until you follow up with your primary care doctor. - Please note that by starting these new medications, you may feel slightly dizzy, so please slowly rise from a seated position to prevent yourself from becoming lightheaded. - Please follow up with your jacquard loom card changer for your exercise stress test to evaluate your hearts condition. - The Transfusion Aide has cleared to go back to work. - If you begin to have any new symptoms please return to the nearest emergency department. Referrals: Cailin Hightower MD [Medical Doctor] - Isaac Ng MD [Staff Provider] - <Walt Luo - Last Filed: 01/26/19 07:48> Provider - Provider Date of Admission: 01/24/19 23:59 Attending physician: Walt Luo MD Consults: 01/25/19 00:27 Cardiology Consult Routine Comment: Consulting Provider: Isaac Ng Consulting Physician: Isaac Ng Reason for Consult: CP, hx DM2, ACS r/o 01/25/19 02:39 Transition In Care/Readmission Reduction Routine Comment: Physician Instructions: Reason For Exam: met criteria 01/25/19 07:36 Diabetic Education Referral Routine Comment: Non compliant with meds Physician Instructions: Reason For Exam: Need more info about DM Hospital Course - Lab Results Lab Results: Most Recent Lab Values WBC 5.9 10^3/uL (4.5-11.0) D 01/25/19 06:10 RBC 4.22 10^6/uL (3.5-6.1) 01/25/19 06:10 Hgb 12.9 g/dL (14.0-18.0) L 01/25/19 06:10 Hct 40.4 % (42.0-52.0) L 01/25/19 06:10 MCV 95.7 fl (80.0-105.0) 01/25/19 06:10 MCH 30.6 pg (25.0-35.0) 01/25/19 06:10 MCHC 31.9 g/dl (31.0-37.0) 01/25/19 06:10 RDW 13.8 % (11.5-14.5) 01/25/19 06:10 Plt Count 217 10^3/uL (120.0-450.0) 01/25/19 06:10 MPV 10.9 fl (7.0-11.0) 01/25/19 06:10 Neut % (Auto) 49.0 % (50.0-68.0) L 01/25/19 06:10 Lymph % (Auto) 31.6 % (22.0-35.0) 01/25/19 06:10 [place] % (Auto) 17.1 % (1.0-6.0) H 01/25/19 06:10 Eos % (Auto) 2.0 % (1.5-5.0) 01/25/19 06:10 Baso % (Auto) 0.3 % (0.0-3.0) 01/25/19 06:10 Lymph # (Auto) 1.9 (1.2-3.4) 01/25/19 06:10 [place] # (Auto) 1.0 (0.1-0.6) H 01/25/19 06:10 Eos # (Auto) 0.1 (0.0-0.7) 01/25/19 06:10 Baso # (Auto) 0.02 K/mm3 (0.0-2.0) 01/25/19 06:10 Absolute Neuts (auto) 2.87 (1.4-6.5) 01/25/19 06:10 Sodium 139 mmol/L (132-148) 01/25/19 06:10 Potassium 3.8 mmol/L (3.6-5.0) 01/25/19 06:10 Chloride 104 mmol/L (98-107) 01/25/19 06:10 Carbon Dioxide 27 mmol/L (21-33) 01/25/19 06:10 Anion Gap 12 (10-20) 01/25/19 06:10 BUN 14 mg/dL (7-21) 01/25/19 06:10 Creatinine 0.7 mg/dl (0.8-1.5) L 01/25/19 06:10 Est GFR ( Amer) > 60 01/25/19 06:10 Est GFR (Non-Af Amer) > 60 01/25/19 06:10 POC Glucose (mg/dL) 86 mg/dL (65-110) 01/25/19 17:13 Random Glucose 83 mg/dL (70-110) 01/25/19 06:10 Hemoglobin A1c 5.9 % (4.2-6.5) 01/25/19 06:10 Calcium 9.4 mg/dL (8.4-10.5) 01/25/19 06:10 Phosphorus 3.9 mg/dL (2.5-4.5) 01/25/19 06:10 Magnesium 2.1 mg/dL (1.7-2.2) 01/25/19 06:10 Total Bilirubin 0.7 mg/dL (0.2-1.3) 01/25/19 06:10 AST 69 U/L (17-59) H 01/25/19 06:10 ALT 67 U/L (7-56) H 01/25/19 06:10 Alkaline Phosphatase 57 U/L (38-126) 01/25/19 06:10 Lactate Dehydrogenase 568 U/L (333-699) 01/24/19 22:40 Total Creatine Kinase 278 U/L (35-230) H 01/25/19 11:10 CK-MB (CK-2) 2.4 ng/mL (0.0-3.6) 01/25/19 11:10 CK-MB (CK-2) % Cancelled 01/24/19 22:40 Troponin I < 0.01 ng/mL 01/25/19 11:10 Total Protein 7.8 g/dL (5.8-8.3) 01/25/19 06:10 Albumin 4.5 g/dL (3.0-4.8) 01/25/19 06:10 Globulin 3.2 gm/dL 01/25/19 06:10 Albumin/Globulin Ratio 1.4 (1.1-1.8) 01/25/19 06:10 Triglycerides 65 mg/dL (35-160) 01/25/19 06:10 Cholesterol 221 mg/dL (130-200) H 01/25/19 06:10 LDL Cholesterol Direct 112 mg/dL (0-129) 01/25/19 06:10 HDL Cholesterol 79 mg/dL (29-60) H 01/25/19 06:10 TSH 3rd Generation 1.64 mIU/mL (0.46-4.68) 01/25/19 06:10 Urine Color Yellow (YELLOW) 01/25/19 03:24 Urine Appearance Clear (CLEAR) 01/25/19 03:24 Urine pH 5.5 (4.7-8.0) 01/25/19 03:24 Ur Specific [place] 1.020 (1.005-1.035) 01/25/19 03:24 Urine Protein Negative mg/dL (<30 mg/dL) 01/25/19 03:24 Urine Glucose (UA) Negative mg/dL (NEGATIVE) 01/25/19 03:24 Urine Ketones Negative mg/dL (NEGATIVE) 01/25/19 03:24 Urine Blood Trace-intact (NEGATIVE) H 01/25/19 03:24 Urine Nitrate Negative (NEGATIVE) 01/25/19 03:24 Urine Bilirubin Negative (NEGATIVE) 01/25/19 03:24 Urine Urobilinogen 0.2 E.U./dL (<1 E.U./dL) 01/25/19 03:24 Ur Leukocyte Esterase Negative [place]/uL (NEGATIVE) 01/25/19 03:24 Urine RBC 0 - 2 /hpf (0-2) 01/25/19 03:24 Urine WBC 0 - 2 /hpf (0-6) 01/25/19 03:24 Ur Epithelial Cells 0 - 2 /hpf (0-5) 01/25/19 03:24 Urine Bacteria None /hpf (NONE) 01/25/19 03:24 Alcohol, Quantitative 36 mg/dL (0-10) H 01/24/19 22:40 Attending/Attestation - Attestation I have personally seen and examined this patient.: Yes I have fully participated in the care of the patient.: Yes I have reviewed all pertinent clinical information, including history, physical exam and plan: Yes Notes (Text): 01/25/19 58 year old male with past medical history of hypertension, alcohol abuse and noncompliance who presented with complaint of chest pain and dizziness. He was admitted to rule out ACS. Serial cardiac enzymes were negative and ACS was ruled out. His symptoms improved. He was seen by cardiology who recommended outpatient stress test. He initially presented hypertensive as well which improved with lisinopril. He states he has history of diabetes and has been taking his sister's diabetic medications at home. However he was informed his A1c is 5.9 and advised not to take his sister's medications but rather follow up with his pmd. LFTs were elevated likely secondary to ETOH abuse and he was counselled on alcohol abstinence. Patient is discharged home to follow up with [facility]. Follow up with cardiology for outpatient stress test. Counselled on alcohol abstinence. Monitor on LFTs as outpatient. Walt Luo MD Hospitalist.
== END 2019-01-25 18:26 | disposition home or self-care (01) ==
LOC: ED 22:20 → ERH 23:59 → 2RSO 01-25 02:07
PROVIDERS: ADMIT Internal Medicine; ATTEND Internal Medicine
DX: R07.9 Chest pain, unspecified (principal); R42 Dizziness and giddiness; E11.65 Type 2 diabetes mellitus with hyperglycemia; E11.40 Type 2 diabetes mellitus with diabetic neuropathy, unspecified; I10 Essential (primary) hypertension; I25.10 Atherosclerotic heart disease of native coronary artery without angina pectoris; F10.10 Alcohol abuse, uncomplicated; Y90.1 Blood alcohol level of 20-39 mg/100 ml; F17.210 Nicotine dependence, cigarettes, uncomplicated; F12.90 Cannabis use, unspecified, uncomplicated; Z91.19 Patient's noncompliance with other medical treatment and regimen; Z83.3 Family history of diabetes mellitus
CPT/HCPCS: 36415; 71045; 80053; 80061; 81001; 82550; 82553; 82948; 83036; 83615; 83735; 84100; 84443; 84484; 85025; 93005; 97161; 99285; G0378; G0480; G8978; G8979; G8980